=== PATIENT | male | born 1980 | race Caucasian/White ===

== ENCOUNTER 2020-12-08 17:55 | Inpatient (IN) | payer OTHER ==
[2020-12-08 18:43] VITALS: BMI 45.8
[2020-12-08] MEDS ORDERED: MAGNESIUM HYDROX 2400MG/30ML ORAL SUSPENSION 30 ML CUP PO PRN (20:26)
[2020-12-08] MEDS ORDERED: MAGNESIUM CITRATE 300 ML BOTTLE PO PRN (20:26)
[2020-12-08] MEDS ORDERED: BISMUTH SUBSALICYLATE 524 MG/30 ML PO PRN (20:26)
[2020-12-08] MEDS ORDERED: METHOCARBAMOL 500 MG TABLET PO PRN (20:26)
[2020-12-08] MEDS ORDERED: ONDANSETRON *ODT* 4 MG TABLET SL PRN (20:26)
[2020-12-08] MEDS ORDERED: P-EPHED 60MG/TRIPROLIDI 2.5MG TABLET PO PRN (20:26)
[2020-12-08] MEDS ORDERED: MAG HYDROX/AL HYDROX/SIMETH 30 ML UNIT-DOSE CUP PO PRN (20:26)
[2020-12-08] MEDS ORDERED: IBUPROFEN 400 MG TABLET (FP) PO PRN (20:26)
[2020-12-08] MEDS ORDERED: MENTHOL/PHENOL 1 EACH UD MM PRN (20:26)
[2020-12-08] MEDS ORDERED: ACETAMINOPHEN 325 MG TABLET (FP) PO PRN ×2 (20:26)
[2020-12-08] MEDS: THIAMINE HCL 100 MG TABLET (FP) PO SCH (21:55)
[2020-12-08] MEDS ORDERED: MELATONIN 5 MG TABLETS PO SCH (22:00)
[2020-12-09] MEDS ORDERED: METHADONE HCL 10 MG TABLET PO ONE (09:15)
[2020-12-09] MEDS ORDERED: MELATONIN 5 MG TABLETS PO PRN (09:50)
[2020-12-09 10:00] LABS: HEMATOCRIT 41.6 % (35.4-49); HEMOGLOBIN 13.9 GM/dL (11.7-16.9); MCHC 33.5 g/dl (32.0-35.9); MEAN CELL VOLUME 80.6 fl (80-96); PLATELET COUNT 355 10^3/uL (134-434); RBC 5.16 M/mm3 (4.00-5.60); RDW 13.9 % (11.9-15.9); WHITE BLOOD COUNT 12.9 K/mm3 (4.0-10.0)
[2020-12-09 10:01] LABS: CALCIUM 8.9 mg/dL (8.5-10.1)
[2020-12-09 10:02] LABS: ALBUMIN 3.7 g/dl (3.4-5.0); BLOOD UREA NITROGEN 15.5 mg/dL (7-18)
[2020-12-09 10:05] LABS: CREATININE 0.7 mg/dL (0.55-1.3)
[2020-12-09 10:07] LABS: BILIRUBIN,TOTAL 0.8 mg/dL (0.2-1); TOT PROT 7.5 g/dl (6.4-8.2)
[2020-12-09] MEDS: PRENATAL VITAMINS W/ FOLIC ACID TABLET (FP) PO SCH (10:12)
[2020-12-09] MEDS: hydrOXYzine PAMOATE 25 MG CAPSULE (FP) PO PRN (20:16)
[2020-12-09] MEDS ORDERED: cloNIDine HCL 0.1 MG TABLET PO ONE (21:21)
[2020-12-09] MEDS: THIAMINE HCL 100 MG TABLET (FP) PO SCH (22:13)
[2020-12-10] MEDS: hydrOXYzine PAMOATE 25 MG CAPSULE (FP) PO PRN (05:44)
[2020-12-10] MEDS ORDERED: METHADONE HCL 40 MG DISPERSABLE TABLET PO SCH (06:00)
[2020-12-10] MEDS ORDERED: LOPERAMIDE HCL 2 MG CAPSULE PO ONE (09:39)
[2020-12-10] MEDS ORDERED: cloNIDine HCL 0.1 MG TABLET PO ONE (09:40)
[2020-12-10 10:06] VITALS: BP 129/81; PULSE 77; TEMP 98.1
[2020-12-10] MEDS: PRENATAL VITAMINS W/ FOLIC ACID TABLET (FP) PO SCH (10:23)
== END 2020-12-10 12:00 | disposition other institution (70) | DRG 773 ==
LOC: YASAS 17:55 → UNDOADMIN 20:51 → Y6N 20:51
PROVIDERS: ADMIT Allergy & Immunology; ATTEND Allergy & Immunology
PROC: HZ2ZZZZ Detoxification Services for Substance Abuse Treatment (ICD-10-PCS; principal; 2020-12-08)
DX: F11.23 Opioid dependence with withdrawal (principal); F19.280 Other psychoactive substance dependence with psychoactive substance-induced anxiety disorder; F19.282 Other psychoactive substance dependence with psychoactive substance-induced sleep disorder; E66.9 Obesity, unspecified; Z68.42 Body mass index [BMI] 45.0-49.9, adult
CPT/HCPCS: 36415; 80053; 85027; 86780; C9803; J0735; U0003; U0005

== ENCOUNTER 2020-12-10 11:44 | Inpatient (IN) | payer OTHER ==
[2020-12-10] MEDS ORDERED: MAGNESIUM CITRATE 300 ML BOTTLE PO PRN (14:54)
[2020-12-10] MEDS ORDERED: MENTHOL/PHENOL 1 EACH UD MM PRN (14:54)
[2020-12-10] MEDS ORDERED: MAGNESIUM HYDROX 2400MG/30ML ORAL SUSPENSION 30 ML CUP PO PRN (14:54)
[2020-12-10] MEDS ORDERED: ACETAMINOPHEN 325 MG TABLET (FP) PO PRN (14:54)
[2020-12-10] MEDS ORDERED: guaiFENesin 200 MG/10 ML 10 ML UNIT-DOSE CUPS PO PRN (14:54)
[2020-12-10] MEDS ORDERED: P-EPHED 60MG/TRIPROLIDI 2.5MG TABLET PO PRN (14:54)
[2020-12-10] MEDS ORDERED: MAG HYDROX/AL HYDROX/SIMETH 30 ML UNIT-DOSE CUP PO PRN (14:54)
[2020-12-10] MEDS: cloNIDine HCL 0.1 MG TABLET PO PRN (15:25)
[2020-12-10] MEDS: hydrOXYzine PAMOATE 25 MG CAPSULE (FP) PO PRN ×2 (15:25→22:43)
[2020-12-10] MEDS ORDERED: hydrOXYzine PAMOATE 25 MG CAPSULE (FP) PO SCH (18:00)
[2020-12-10] MEDS: MELATONIN 5 MG TABLETS PO SCH (21:58)
[2020-12-10] MEDS: THIAMINE HCL 100 MG TABLET (FP) PO SCH (21:58)
[2020-12-11] MEDS: hydrOXYzine PAMOATE 25 MG CAPSULE (FP) PO PRN ×3 (06:40→21:25)
[2020-12-11] MEDS: cloNIDine HCL 0.1 MG TABLET PO PRN (06:40)
[2020-12-11] MEDS: LOPERAMIDE HCL 2 MG CAPSULE PO PRN ×2 (06:41→18:45)
[2020-12-11] MEDS: PRENATAL VITAMINS W/ FOLIC ACID TABLET (FP) PO SCH (10:41)
[2020-12-11] MEDS: MELATONIN 5 MG TABLETS PO SCH (21:24)
[2020-12-11] MEDS: THIAMINE HCL 100 MG TABLET (FP) PO SCH (21:24)
[2020-12-11] MEDS: IBUPROFEN 400 MG TABLET (FP) PO PRN (22:19)
[2020-12-11] MEDS: GABAPENTIN 100 MG CAPSULE PO PRN (22:19)
[2020-12-12] MEDS ORDERED: ONDANSETRON *ODT* 4 MG TABLET SL PRN (07:20)
[2020-12-12] MEDS: cloNIDine HCL 0.1 MG TABLET PO PRN (07:44)
[2020-12-12] MEDS: PRENATAL VITAMINS W/ FOLIC ACID TABLET (FP) PO SCH (09:33)
[2020-12-12] MEDS: hydrOXYzine PAMOATE 25 MG CAPSULE (FP) PO PRN (09:34)
[2020-12-12] MEDS: BUPRENORPHINE/NALOXONE 4 MG/1 MG FILM PACKET SL SCH (13:46)
[2020-12-12] MEDS: THIAMINE HCL 100 MG TABLET (FP) PO SCH (21:26)
[2020-12-12] MEDS: hydrOXYzine PAMOATE 50 MG CAPSULE (FP) PO PRN (21:27)
[2020-12-12] MEDS: GABAPENTIN 100 MG CAPSULE PO PRN (23:43)
[2020-12-13] MEDS: PRENATAL VITAMINS W/ FOLIC ACID TABLET (FP) PO SCH (09:46)
[2020-12-13] MEDS: BUPRENORPHINE/NALOXONE 4 MG/1 MG FILM PACKET SL SCH (09:47)
[2020-12-13] MEDS: SUVOREXANT 10 MG TABLET PO PRN (21:20)
[2020-12-13] MEDS: THIAMINE HCL 100 MG TABLET (FP) PO SCH (21:21)
[2020-12-13] MEDS: IBUPROFEN 400 MG TABLET (FP) PO PRN (21:21)
[2020-12-14] MEDS: BUPRENORPHINE/NALOXONE 4 MG/1 MG FILM PACKET SL SCH (09:53)
[2020-12-14] MEDS: PRENATAL VITAMINS W/ FOLIC ACID TABLET (FP) PO SCH (09:54)
[2020-12-14] MEDS: METHOCARBAMOL 500 MG TABLET PO PRN ×2 (09:57→21:18)
[2020-12-14] MEDS: IBUPROFEN 400 MG TABLET (FP) PO PRN (13:21)
[2020-12-14] MEDS: THIAMINE HCL 100 MG TABLET (FP) PO SCH (21:17)
[2020-12-14] MEDS: SUVOREXANT 10 MG TABLET PO PRN (21:17)
[2020-12-15] MEDS: BUPRENORPHINE/NALOXONE 4 MG/1 MG FILM PACKET SL SCH (09:36)
[2020-12-15] MEDS: PRENATAL VITAMINS W/ FOLIC ACID TABLET (FP) PO SCH (09:36)
[2020-12-15] MEDS: IBUPROFEN 400 MG TABLET (FP) PO PRN ×2 (09:37→21:56)
[2020-12-15] MEDS: SUVOREXANT 10 MG TABLET PO PRN (21:15)
[2020-12-15] MEDS: THIAMINE HCL 100 MG TABLET (FP) PO SCH (21:59)
[2020-12-16] MEDS: hydrOXYzine PAMOATE 50 MG CAPSULE (FP) PO PRN (07:30)
[2020-12-16] MEDS: BUPRENORPHINE/NALOXONE 4 MG/1 MG FILM PACKET SL SCH (09:47)
[2020-12-16] MEDS: PRENATAL VITAMINS W/ FOLIC ACID TABLET (FP) PO SCH (09:47)
[2020-12-16] MEDS: THIAMINE HCL 100 MG TABLET (FP) PO SCH (21:22)
[2020-12-16] MEDS: SUVOREXANT 10 MG TABLET PO PRN (21:23)
[2020-12-17] MEDS: METHOCARBAMOL 500 MG TABLET PO PRN (09:48)
[2020-12-17] MEDS: PRENATAL VITAMINS W/ FOLIC ACID TABLET (FP) PO SCH (09:48)
[2020-12-17] MEDS: BUPRENORPHINE/NALOXONE 4 MG/1 MG FILM PACKET SL SCH (09:48)
[2020-12-17] MEDS ORDERED: MASKS NR ONE (18:42)
[2020-12-17] MEDS: THIAMINE HCL 100 MG TABLET (FP) PO SCH (21:27)
[2020-12-17] MEDS: SUVOREXANT 10 MG TABLET PO PRN (21:28)
[2020-12-17] MEDS: hydrOXYzine PAMOATE 50 MG CAPSULE (FP) PO PRN (21:29)
[2020-12-17] MEDS: IBUPROFEN 400 MG TABLET (FP) PO PRN (21:29)
[2020-12-18] MEDS: PRENATAL VITAMINS W/ FOLIC ACID TABLET (FP) PO SCH (09:53)
[2020-12-18] MEDS: BUPRENORPHINE/NALOXONE 4 MG/1 MG FILM PACKET SL SCH (09:54)
[2020-12-18] MEDS: IBUPROFEN 400 MG TABLET (FP) PO PRN ×2 (09:57→21:39)
[2020-12-18] MEDS: SUVOREXANT 10 MG TABLET PO PRN (21:36)
[2020-12-18] MEDS: hydrOXYzine PAMOATE 50 MG CAPSULE (FP) PO PRN (21:36)
[2020-12-18] MEDS: THIAMINE HCL 100 MG TABLET (FP) PO SCH (21:36)
[2020-12-19 06:53] VITALS: BP 129/83; PULSE 80; TEMP 97.3
[2020-12-19] MEDS: BUPRENORPHINE/NALOXONE 4 MG/1 MG FILM PACKET SL SCH (09:38)
[2020-12-19] MEDS: PRENATAL VITAMINS W/ FOLIC ACID TABLET (FP) PO SCH (09:39)
[2020-12-19] MEDS: IBUPROFEN 400 MG TABLET (FP) PO PRN (21:35)
[2020-12-19] MEDS: THIAMINE HCL 100 MG TABLET (FP) PO SCH (21:36)
[2020-12-19] MEDS: SUVOREXANT 10 MG TABLET PO PRN (21:37)
[2020-12-20] MEDS: PRENATAL VITAMINS W/ FOLIC ACID TABLET (FP) PO SCH (09:57)
[2020-12-20] MEDS: BUPRENORPHINE/NALOXONE 4 MG/1 MG FILM PACKET SL SCH (09:57)
== END 2020-12-20 12:30 | disposition home or self-care (01) | DRG 772 ==
LOC: YASAS 11:44 → Y3E 11:48
PROVIDERS: ADMIT Allergy & Immunology; ATTEND Allergy & Immunology
PROC: HZ42ZZZ Group Counseling for Substance Abuse Treatment, Cognitive-Behavioral (ICD-10-PCS; principal; 2020-12-10)
DX: F11.20 Opioid dependence, uncomplicated (principal); F19.282 Other psychoactive substance dependence with psychoactive substance-induced sleep disorder; F19.280 Other psychoactive substance dependence with psychoactive substance-induced anxiety disorder; E66.01 Morbid (severe) obesity due to excess calories; Z68.42 Body mass index [BMI] 45.0-49.9, adult
CPT/HCPCS: 82962; J0735; Q0162

== ENCOUNTER 2021-09-25 12:38 | Inpatient (IN) | payer OTHER ==
[2021-09-25] MEDS ORDERED: BISMUTH SUBSALICYLATE 262 MG/15 ML BTL PO PRN (13:14)
[2021-09-25] MEDS ORDERED: BENZOCAINE/MENTHOL (CHLORASEPTIC ) LOZENGE MM PRN (13:14)
[2021-09-25] MEDS ORDERED: BUPRENORPHINE HCL 150 MCG, BUPRENORPHINE HCL 75 MCG BC ONE (13:14)
[2021-09-25] MEDS ORDERED: GABAPENTIN 100 MG CAPSULE PO PRN (13:14)
[2021-09-25] MEDS ORDERED: IBUPROFEN 400 MG TABLET (FP) PO PRN (13:14)
[2021-09-25] MEDS ORDERED: NICOTINE 10 MG CARTRIDGE (INHALER) IH PRN (13:14)
[2021-09-25] MEDS ORDERED: LOPERAMIDE HCL 2 MG CAPSULE PO PRN (13:14)
[2021-09-25] MEDS ORDERED: cloNIDine HCL 0.1 MG TABLET PO ONE (13:14)
[2021-09-25] MEDS ORDERED: MAGNESIUM HYDROX 2400MG/30ML ORAL SUSPENSION 30 ML CUP PO PRN (13:14)
[2021-09-25] MEDS ORDERED: MAG HYDROX/AL HYDROX/SIMETH 30 ML UNIT-DOSE CUP PO PRN (13:14)
[2021-09-25] MEDS ORDERED: BUPRENORPHINE HCL 150 MCG, BUPRENORPHINE HCL 75 MCG BC PRN (13:14)
[2021-09-25] MEDS ORDERED: ACETAMINOPHEN 325 MG TABLET (FP) PO PRN ×2 (13:14)
[2021-09-25] MEDS ORDERED: DICYCLOMINE HCL 10 MG CAPSULE PO PRN (13:14)
[2021-09-25] MEDS ORDERED: MAGNESIUM CITRATE 300 ML BOTTLE PO PRN (13:14)
[2021-09-25] MEDS ORDERED: METHOCARBAMOL 500 MG TABLET PO PRN (13:14)
[2021-09-25] MEDS ORDERED: BUPRENORPHINE HCL 150 MCG FILM BC ONE (15:33)
[2021-09-25] MEDS ORDERED: BUPRENORPHINE HCL 75 MCG FILM BC ONE (15:33)
[2021-09-25 15:43] VITALS: BMI 43.0
[2021-09-25] MEDS: hydrOXYzine PAMOATE 25 MG CAPSULE (FP) PO SCH ×3 (17:29→22:11)
[2021-09-25] MEDS: NICOTINE 14 MG/24 HOURS TOPICAL PATCH TD SCH (17:51)
[2021-09-25] MEDS: diazePAM 5 MG TABLET PO PRN (17:52)
[2021-09-25] MEDS ORDERED: MELATONIN 5 MG TABLETS PO SCH (22:00)
[2021-09-25] MEDS: THIAMINE HCL 100 MG TABLET (FP) PO SCH (22:11)
[2021-09-26] MEDS ORDERED: BUPRENORPHINE HCL 150 MCG, BUPRENORPHINE HCL 75 MCG BC PRN
[2021-09-26] MEDS ORDERED: BUPRENORPHINE HCL 150 MCG FILM BC ONE ×2 (05:01→16:37)
[2021-09-26] MEDS ORDERED: BUPRENORPHINE HCL 75 MCG FILM BC ONE ×2 (05:01→16:37)
[2021-09-26] MEDS: BUPRENORPHINE HCL 150 MCG, BUPRENORPHINE HCL 75 MCG BC SCH ×2 (05:46→17:35)
[2021-09-26] MEDS: hydrOXYzine PAMOATE 25 MG CAPSULE (FP) PO SCH ×5 (05:46→22:10)
[2021-09-26] MEDS: diazePAM 5 MG TABLET PO PRN ×2 (10:15→22:09)
[2021-09-26] MEDS: NICOTINE 14 MG/24 HOURS TOPICAL PATCH TD SCH (10:15)
[2021-09-26] MEDS: PRENATAL VITAMINS W/ FOLIC ACID TABLET (FP) PO SCH (10:15)
[2021-09-26 11:50] LABS: HEMATOCRIT 41.4 % (35.4-49); MCH 26.9 pg (25.7-33.7); MCHC 33.9 g/dl (32.0-35.9); MEAN CELL VOLUME 79.5 fl (80-96); MEAN PLT VOLUME 6.8 fl (7.5-11.1); PLATELET COUNT 365 10^3/uL (134-434); RDW 13.9 % (11.9-15.9)
[2021-09-26 12:07] LABS: CALCIUM 9.4 mg/dL (8.5-10.1)
[2021-09-26 12:08] LABS: ALBUMIN 3.8 g/dl (3.4-5.0); BLOOD UREA NITROGEN 8.2 mg/dL (7-18)
[2021-09-26 12:11] LABS: CREATININE 0.7 mg/dL (0.55-1.3)
[2021-09-26 12:12] LABS: TOT PROT 8.1 g/dl (6.4-8.2)
[2021-09-26 12:13] LABS: BILIRUBIN,TOTAL 0.3 mg/dL (0.2-1)
[2021-09-26] MEDS: cloNIDine HCL 0.1 MG TABLET PO PRN (17:35)
[2021-09-26] MEDS: SUVOREXANT 10 MG TABLET PO PRN (22:09)
[2021-09-26] MEDS: THIAMINE HCL 100 MG TABLET (FP) PO SCH (22:10)
[2021-09-27] MEDS: BUPRENORPHINE HCL 450 MCG FILM BC SCH ×2 (05:35→17:48)
[2021-09-27] MEDS: hydrOXYzine PAMOATE 25 MG CAPSULE (FP) PO SCH ×5 (05:36→22:23)
[2021-09-27] MEDS: cloNIDine HCL 0.1 MG TABLET PO PRN ×2 (07:32→22:23)
[2021-09-27] MEDS ORDERED: BUPRENORPHINE HCL 150 MCG FILM BC ONE (10:15)
[2021-09-27] MEDS: diazePAM 5 MG TABLET PO PRN (10:27)
[2021-09-27] MEDS: NICOTINE 14 MG/24 HOURS TOPICAL PATCH TD SCH (10:27)
[2021-09-27] MEDS: PRENATAL VITAMINS W/ FOLIC ACID TABLET (FP) PO SCH (10:27)
[2021-09-27 14:08] LABS: SARS-CoV-2 NAA Not Detected (Not Detected)
[2021-09-27] MEDS: ONDANSETRON *ODT* 4 MG TABLET SL PRN (20:46)
[2021-09-27] MEDS: THIAMINE HCL 100 MG TABLET (FP) PO SCH (22:23)
[2021-09-27] MEDS: SUVOREXANT 10 MG TABLET PO PRN (23:23)
[2021-09-28] MEDS: hydrOXYzine PAMOATE 25 MG CAPSULE (FP) PO SCH ×2 (05:59→10:47)
[2021-09-28] MEDS ORDERED: BUPRENORPHINE/NALOXONE 4 MG/1 MG FILM PACKET SL SCH (06:00)
[2021-09-28] MEDS: ONDANSETRON *ODT* 4 MG TABLET SL PRN (07:41)
[2021-09-28 09:22] VITALS: BP 126/73; PULSE 75; TEMP 98
[2021-09-28] MEDS: NICOTINE 14 MG/24 HOURS TOPICAL PATCH TD SCH (10:46)
[2021-09-28] MEDS: PRENATAL VITAMINS W/ FOLIC ACID TABLET (FP) PO SCH (10:47)
[2021-09-29] MEDS ORDERED: BUPRENORPHINE/NALOXONE 8 MG/2 MG FILM PACKET SL ONE (06:00)
== END 2021-09-28 12:12 | disposition left against medical advice (07) | DRG 770 ==
LOC: YASAS 12:38 → Y3N 15:20
PROVIDERS: ADMIT Allergy & Immunology; ATTEND Allergy & Immunology
PROC: HZ2ZZZZ Detoxification Services for Substance Abuse Treatment (ICD-10-PCS; principal; 2021-09-25)
DX: F11.23 Opioid dependence with withdrawal (principal); F19.282 Other psychoactive substance dependence with psychoactive substance-induced sleep disorder; F41.8 Other specified anxiety disorders; F32.A Depression, unspecified; E66.01 Morbid (severe) obesity due to excess calories; Z68.41 Body mass index [BMI] 40.0-44.9, adult; Z87.891 Personal history of nicotine dependence
CPT/HCPCS: 36415; 80053; 85027; 86780; 87811; 93005; 93010; C9803-CS; J0735; Q0162; U0003; U0005

== ENCOUNTER 2023-09-10 15:33 | Inpatient (IN) | payer OTHER ==
[2023-09-10 16:41] VITALS: BMI 36.0
[2023-09-10] MEDS ORDERED: IBUPROFEN 600 MG TABLET (FP) PO PRN (19:12)
[2023-09-10] MEDS ORDERED: DICYCLOMINE HCL 10 MG CAPSULE PO PRN (19:12)
[2023-09-10] MEDS ORDERED: BENZOCAINE/MENTHOL (CHLORASEPTIC ) LOZENGE MM PRN (19:12)
[2023-09-10] MEDS ORDERED: ONDANSETRON *ODT* 4 MG TABLET SL PRN (19:12)
[2023-09-10] MEDS ORDERED: MAGNESIUM HYDROX 2400MG/30ML ORAL SUSPENSION 30 ML CUP PO PRN (19:12)
[2023-09-10] MEDS ORDERED: METHOCARBAMOL 500 MG TABLET PO PRN (19:12)
[2023-09-10] MEDS ORDERED: IBUPROFEN 400 MG TABLET (FP) PO PRN (19:12)
[2023-09-10] MEDS ORDERED: POLYETHYLENE GLYCOL (HEALTHYLAX) 3350 17 GM PACKET PO PRN (19:12)
[2023-09-10] MEDS ORDERED: ACETAMINOPHEN 325 MG TABLET (FP) PO PRN (19:12)
[2023-09-10] MEDS ORDERED: MAG HYDROX/AL HYDROX/SIMETH 30 ML UNIT-DOSE CUP PO PRN (19:12)
[2023-09-10] MEDS ORDERED: guaiFENesin 600 MG TABLET.ER (FP) PO PRN (19:12)
[2023-09-10] MEDS ORDERED: BISMUTH SUBSALICYLATE 524 MG/30 ML PO PRN (19:12)
[2023-09-10] MEDS ORDERED: LOPERAMIDE HCL 2 MG CAPSULE PO PRN (19:12)
[2023-09-10] MEDS ORDERED: NALOXONE HCL 0.4 MG/ML VIAL IM PRN (19:12)
[2023-09-10] MEDS ORDERED: hydrOXYzine PAMOATE 25 MG CAPSULE (FP) PO PRN (19:12)
[2023-09-10] MEDS ORDERED: NALOXONE HCL (KLOXXADO) 8 MG SPRAY NS PRN (19:12)
[2023-09-10] MEDS ORDERED: BENZONATATE 200 MG CAPSULE PO PRN (19:12)
[2023-09-10] MEDS ORDERED: diazePAM 5 MG TABLET PO PRN (22:00)
[2023-09-10] MEDS: diazePAM 5 MG TABLET PO SCH (23:11)
[2023-09-10] MEDS: MELATONIN 5 MG TABLETS PO SCH (23:12)
[2023-09-10] MEDS: THIAMINE HCL 100 MG TABLET (FP) PO SCH (23:12)
[2023-09-11] MEDS: PRENATAL VITAMINS W/ FOLIC ACID TABLET (FP) PO SCH (09:21)
[2023-09-11 09:49] VITALS: BP 139/85; PULSE 78; RESP 18; TEMP 98.1
[2023-09-12] MEDS ORDERED: diazePAM 5 MG TABLET PO SCH (06:00)
[2023-09-13] MEDS ORDERED: diazePAM 5 MG TABLET PO SCH (06:00)
[2023-09-14] MEDS ORDERED: diazePAM 5 MG TABLET PO ONE (06:00)
== END 2023-09-11 09:30 | disposition left against medical advice (07) | DRG 770 ==
LOC: YASAS 15:33 → Y6N 19:05
PROVIDERS: ADMIT Allergy & Immunology; ATTEND Surgery
PROC: HZ2ZZZZ Detoxification Services for Substance Abuse Treatment (ICD-10-PCS; principal; 2023-09-10)
DX: F13.230 Sedative, hypnotic or anxiolytic dependence with withdrawal, uncomplicated (principal); F11.20 Opioid dependence, uncomplicated; F17.210 Nicotine dependence, cigarettes, uncomplicated; F41.8 Other specified anxiety disorders
CPT/HCPCS: 80305; 93005; 93010